=== PATIENT | female | born 1990 | race Caucasian/White ===

== ENCOUNTER 2020-06-30 10:14 | Inpatient (IN) | payer BC ==
[2020-06-30] MEDS ORDERED: Lidocaine 1% 50 ML MDV INJECT PRN (11:52)
[2020-06-30] MEDS ORDERED: Misoprostol 200 MCG Tab PO PRN (11:52)
[2020-06-30] MEDS ORDERED: Tranexamic Acid 1,000 MG in Sodium Chloride 0.9% 100 ML IV PRN (11:52)
[2020-06-30] MEDS ORDERED: Sodium Chloride 0.9% 10 ML SDV IV PRN (11:52)
[2020-06-30] MEDS ORDERED: Water For Irrigation,Sterile 1,000 ML Container IRR PRN (11:52)
[2020-06-30] MEDS ORDERED: Sodium Chloride 0.9% 2.5 ML Syringe FLUSH PRN (11:52)
[2020-06-30] MEDS ORDERED: Sodium Chloride 0.9% 10 ML Syringe FLUSH PRN (11:52)
[2020-06-30] MEDS ORDERED: Carboprost Tromethamine 250 MCG/1 ML Amp IM PRN (11:52)
[2020-06-30] MEDS ORDERED: Methylergonovine 0.2 MG/1 ML Amp IM PRN (11:52)
[2020-06-30] MEDS ORDERED: Ondansetron 4 MG/2 ML SDV IVPUSH PRN (11:52)
[2020-06-30] MEDS ORDERED: Oxytocin/0.9 % Sodium Chloride 30 UNIT/500 ML BAG IV SCH ×4 (12:00→15:15)
[2020-06-30] MEDS ORDERED: Terbutaline 1 MG/ML SDV SUBCUT PRN ×3 (15:09→15:14)
[2020-06-30] MEDS ORDERED: Misoprostol 25 MCG (1/4 of 100 MCG) Tab VAG PRN ×4 (15:09→15:10)
[2020-06-30] MEDS: Lactated Ringers 1,000 ML IV SCH (15:39)
--- NOTE | 2020-06-30 17:11 | PCM.LDHP ---
L&D History of Present Illness - General Date of Service: 06/30/20 Admit Problem/Dx: Patient Status Order with Admit Dx/Problem 06/30/20 11:52 Patient Status [ADT] Routine Admission Diagnosis/Problem Admission Diagnosis/Problem Source of Information: Patient History Limitations: Reports: No Limitations - History of Present Illness Introduction:: 29yo at 38w5d presented with SROM at 4:30am and contractions shortly after. Denies VB. Reports good FM. care remarkable for history of genital herpes, no breakouts this and patient has been on PPX valtrex. Also of note, patient had a demise at 6mo [place]. care otherwise unremarkable. AB+, abs screen neg, RI, HepBsAg neg, RPR neg, HIV neg, GC/Chlam neg, GBS neg. Nurse reports patient was grossly ruptured, and did not see any signs of herpes outbreak - Related Data Allergies/Adverse Reactions: Allergies Allergy/AdvReac Type Severity Reaction Status Date / Time Penicillins Allergy Unknown Rash Verified 06/30/20 12:50 tramadol Allergy Nausea and Verified 06/30/20 12:51 Vomiting Home Medications: Home Meds Pnv No.95/Ferrous Fum/Folic AC [ Tablet] 1 tab PO DAILY 06/30/20 [History] valACYclovir HCl [Valtrex] 500 tab PO BID 06/30/20 [History] H&P Review of Systems - Review of Systems: Review Of Systems: See Below General: Reports: No Symptoms HEENT: Reports: No Symptoms Pulmonary: Reports: No Symptoms Cardiovascular: Reports: No Symptoms Gastrointestinal: Reports: No Symptoms Genitourinary: Reports: No Symptoms Musculoskeletal: Reports: No Symptoms Skin: Reports: No Symptoms Psychiatric: Reports: No Symptoms Neurological: Reports: No Symptoms Hematologic/Lymphatic: Reports: No Symptoms Immunologic: Reports: No Symptoms L&D Exam - Exam Exam: See Below - Vital Signs Weight: 112.945 kg - OB Specific Contraction Intensity: Mild to Moderate Movement: Active Heart Rate (FHR) Variability: Moderate (6-25 bmp) Presentation: Vertex Estimated Weight: 7lbs - Roman Score Roman Score Cervix Position: Midposition Roman Score Consistency: Soft Roman Score Effacement: >80% Roman Score Dilation: 1-2 cm Roman Score 's Station: -2 Roman Score Total: 8 - Exam General: Alert, Oriented Lungs: Normal Respiratory Effort Cardiovascular: Regular Rate GI/Abdominal Exam: Non-Tender Extremities: Normal Inspection Psychiatric: Alert, Normal Affect, Normal Mood - Patient Data Lab Results Last 24 hrs: Laboratory Results - last 24 hr 06/30/20 06/30/20 06/30/20 Range/Units 09:40 11:25 11:35 WBC 12.10 H (4.0-11.0) K/uL RBC 4.10 L (4.30-5.90) M/uL Hgb 12.9 (12.0-16.0) g/dL Hct 37.9 (36.0-46.0) % MCV 92.4 (80.0-98.0) fL MCH 31.5 (27.0-32.0) pg MCHC 34.0 (31.0-37.0) g/dL RDW Std Deviation 43.1 (28.0-62.0) fl RDW Coeff of Eliane 13 (11.0-15.0) % Plt Count 279 (150-400) K/uL MPV 10.80 (7.40-12.00) fL Nucleated RBC % 0.0 /100WBC Nucleated RBCs # 0 K/uL Membrane Rupture POSITIVE SARS-CoV-2 RNA (ESMER) NEGATIVE (NEGATIVE) Blood Type Antibody Screen 06/30/20 Range/Units 11:35 WBC (4.0-11.0) K/uL RBC (4.30-5.90) M/uL Hgb (12.0-16.0) g/dL Hct (36.0-46.0) % MCV (80.0-98.0) fL MCH (27.0-32.0) pg MCHC (31.0-37.0) g/dL RDW Std Deviation (28.0-62.0) fl RDW Coeff of Eliane (11.0-15.0) % Plt Count (150-400) K/uL MPV (7.40-12.00) fL Nucleated RBC % /100WBC Nucleated RBCs # K/uL Membrane Rupture SARS-CoV-2 RNA (ESMER) (NEGATIVE) Blood Type AB POSITIVE Antibody Screen NEGATIVE Result Diagrams: 06/30/20 11:35 - Problem List (1) Term SNOMED Code(s): 84807797 ICD Code: Z34.90 - ENCNTR FOR SUPRVSN OF NORMAL , UNSP, UNSP TRIMESTER Status: Acute Priority: High Current Visit: Yes (2) Active labor at term SNOMED Code(s): 68203925 ICD Code: [id number] - Status: Acute Priority: High Current Visit: Yes Problem List Initiated/Reviewed/Updated: Yes Orders Last 24hrs: Active Orders 24 hr Category Date Time Status Patient Status [ADT] Routine ADT 06/30/20 11:52 Active Bedrest Bathroom Privileges [RC] ASDIRECTED Care 06/30/20 15:09 Active Bedrest Bathroom Privileges [RC] ASDIRECTED Care 06/30/20 15:11 Active Bedrest Bathroom Privileges [RC] ASDIRECTED Care 06/30/20 15:14 Active Communication Order [RC] ASDIRECTED Care 06/30/20 15:09 Active Communication Order [RC] ASDIRECTED Care 06/30/20 15:09 Active Communication Order [RC] ASDIRECTED Care 06/30/20 15:09 Active Communication Order [RC] ASDIRECTED Care 06/30/20 15:11 Active Communication Order [RC] ASDIRECTED Care 06/30/20 15:11 Active Communication Order [RC] ASDIRECTED Care 06/30/20 15:14 Active Communication Order [RC] ASDIRECTED Care 06/30/20 15:14 Active Heart Tones [RC] CONTINUOUS Care 06/30/20 11:52 Active Non Stress Test [RC] PER UNIT ROUTINE Care 06/30/20 11:52 Active May Shower [RC] ASDIRECTED Care 06/30/20 11:52 Active Notify Provider [RC] PRN Care 06/30/20 11:52 Active Notify Provider [RC] PRN Care 06/30/20 15:09 Active Notify Provider [RC] PRN Care 06/30/20 15:09 Active Notify Provider [RC] PRN Care 06/30/20 15:11 Active Notify Provider [RC] PRN Care 06/30/20 15:14 Active Notify Provider [RC] STAT Care 06/30/20 15:09 Active Notify Provider [RC] STAT Care 06/30/20 15:14 Active Oxygen Therapy [RC] ASDIRECTED Care 06/30/20 15:09 Active Oxygen Therapy [RC] ASDIRECTED Care 06/30/20 15:11 Active Oxygen Therapy [RC] ASDIRECTED Care 06/30/20 15:14 Active Up ad Elena [RC] ASDIRECTED Care 06/30/20 11:52 Active Vaginal Exam [RC] PRN Care 06/30/20 11:52 Active Vaginal Exam [RC] PRN Care 06/30/20 15:09 Active Vaginal Exam [RC] PRN Care 06/30/20 15:11 Active Vaginal Exam [RC] PRN Care 06/30/20 15:14 Active Vital Signs [RC] PER UNIT ROUTINE Care 06/30/20 11:52 Active Vital Signs [RC] PER UNIT ROUTINE Care 06/30/20 15:09 Active Vital Signs [RC] PER UNIT ROUTINE Care 06/30/20 15:11 Active Vital Signs [RC] PER UNIT ROUTINE Care 06/30/20 15:14 Active RPR (SYPHILIS SERO) W/ RFLX [REF] Routine Lab 06/30/20 11:35 Received Carboprost Tromethamine [Hemabate DS] Med 06/30/20 11:52 Active 250 mcg IM ASDIRECTED PRN Lactated Ringers [Ringers, Lactated] 1,000 ml Med 06/30/20 12:00 Active IV ASDIRECTED Lidocaine 1% [Xylocaine 1%] Med 06/30/20 11:52 Active 50 ml INJECT ONETIME PRN Methylergonovine [Methergine] Med 06/30/20 11:52 Active 0.2 mg IM ASDIRECTED PRN Nalbuphine [Nubain] Med 06/30/20 11:52 Active 10 mg IVPUSH Q1H PRN Ondansetron [Zofran] Med 06/30/20 11:52 Active 4 mg IVPUSH Q4H PRN Oxytocin/0.9 % Sodium Chloride [Oxytocin 30 Unit/500 ML Med 06/30/20 12:00 Active -NS] 30 unit in 500 ml IV TITRATE Oxytocin/0.9 % Sodium Chloride [Oxytocin 30 Unit/500 ML Med 06/30/20 15:15 Active -NS] 30 unit in 500 ml IV TITRATE Sodium Chloride 0.9% [Normal Saline] Med 06/30/20 11:52 Active 10 ml IV ASDIRECTED PRN Sodium Chloride 0.9% [Saline Flush] Med 06/30/20 11:52 Active 10 ml FLUSH ASDIRECTED PRN Sodium Chloride 0.9% [Saline Flush] Med 06/30/20 11:52 Active 2.5 ml FLUSH ASDIRECTED PRN Terbutaline [Brethine] Med 06/30/20 15:09 Active 0.25 mg SUBCUT ASDIRECTED PRN Tranexamic Acid [Cyklokapron] 1,000 mg Med 06/30/20 11:52 Active Sodium Chloride 0.9% [Normal Saline] 100 ml IV ONETIME Water For Irrigation,Sterile [Sterile Water for Med 06/30/20 11:52 Active Irrigation] 1,000 ml IRR ASDIRECTED PRN miSOPROStoL [Cytotec] Med 06/30/20 11:52 Active 200 mcg PO ONETIME PRN Scalp Electrode [WOMSER] Per Unit Routine Oth 06/30/20 11:52 Ordered Medication Administration Instruction [OM.PC] Q3H Oth 06/30/20 15:15 Ordered Peripheral IV Insertion Adult [OM.PC] Routine Oth 06/30/20 11:52 Ordered Resuscitation Status Routine Resus Stat 06/30/20 11:52 Ordered Medication Orders Carboprost Tromethamine (Carboprost Tromethamine 250 Mcg/1 Ml Amp) 250 mcg IM ASDIRECTED PRN PRN Reason: Post Hemorrhage Oxytocin/Sodium Chloride (Oxytocin 30 Unit/500 Ml-Ns) 30 unit in 500 mls @ 999 mls/hr IV TITRATE STANTON Tranexamic Acid 1,000 mg/ (Sodium Chloride) 110 mls @ 660 mls/hr IV ONETIME PRN PRN Reason: Bleeding Lactated Ringer's (Ringers, Lactated) 1,000 mls @ 150 mls/hr IV ASDIRECTED STANTON Last Admin: 06/30/20 15:39 Dose: 150 mls/hr Documented by: TAMMY Oxytocin/Sodium Chloride (Oxytocin 30 Unit/500 Ml-Ns) 30 unit in 500 mls @ 2 mls/hr IV TITRATE STANTON; Protocol Last Titration: 06/30/20 16:49 Dose: 6 munits/min, 6 mls/hr Documented by: Titration: 06/30/20 16:20 Dose: 4 munits/min, 4 mls/hr Documented by: Admin: 04/09/21 15:40 Dose: 2 munits/min, 2 mls/hr Documented by: TAMMY Lidocaine HCl (Lidocaine 1% 50 Ml Mdv) 50 ml INJECT ONETIME PRN PRN Reason: Laceration repair Methylergonovine Maleate (Methylergonovine 0.2 Mg/1 Ml Amp) 0.2 mg IM DIRECTED PRN PRN Reason: Post Hemorrhage Misoprostol (Misoprostol 200 Mcg Tab) 200 mcg PO ONETIME PRN PRN Reason: Post Hemorrhage Nalbuphine HCl (Nalbuphine 10 Mg/1 Ml Vial) 10 mg IVPUSH Q1H PRN PRN Reason: Pain (severe 7-10) Ondansetron HCl (Ondansetron 4 Mg/2 Ml Sdv) 4 mg IVPUSH Q4H PRN PRN Reason: Nausea/Vomiting Sodium Chloride (Sodium Chloride 0.9% 10 Ml Syringe) 10 ml FLUSH ASDIRECTED PRN PRN Reason: Keep Vein Open Sodium Chloride (Sodium Chloride 0.9% 2.5 Ml Syringe) 2.5 ml FLUSH ASDIRECTED PRN PRN Reason: Keep Vein Open Sodium Chloride (Sodium Chloride 0.9% 10 Ml Sdv) 10 ml IV ASDIRECTED PRN PRN Reason: IV Use Sterile Water (Water For Irrigation,Sterile 1,000 Ml Container) 1,000 ml IRR ASDIRECTED PRN PRN Reason: delivery Terbutaline Sulfate (Terbutaline 1 Mg/Ml Sdv) 0.25 mg SUBCUT ASDIRECTED PRN PRN Reason: Tacysystole Assessment/Plan Comment:: 29 yo at 38w5d present with SROM in labor. H/o genital herpes, no recent outbreaks. Patient has been on PPx valtrex. Patient does not have an outbreak currently, understand the risk to baby with vaginal and wants to proceed. Will admit and expectant management. Epidural PRN
[2020-06-30] MEDS: Nalbuphine 10 MG/1 ML Vial IVPUSH PRN ×2 (18:27→23:00)
[2020-06-30] MEDS: Promethazine 25 MG Tab PO PRN ×2 (18:28→23:04)
[2020-06-30] MEDS ORDERED: valACYclovir 500 MG Tab PO ONE (21:27)
[2020-07-01] MEDS: Lactated Ringers 1,000 ML IV SCH ×3 (00:13→07:33)
[2020-07-01] MEDS: Nalbuphine 10 MG/1 ML Vial IVPUSH PRN (00:31)
[2020-07-01] MEDS ORDERED: Ropivacaine HCl/PF 100 ML ONE ×2 (01:43→08:18)
[2020-07-01] MEDS ORDERED: fentaNYL 100 MCG/2 ML SDV ONE ×5 (01:43→08:18)
--- NOTE | 2020-07-01 02:16 | PCM.PREANE ---
Preanesthetic Assessment - Anesthesia/Transfusion/Family Hx Anesthesia History: Prior Anesthesia Without Reaction Family History of Anesthesia Reaction: No Transfusion History: No Prior Transfusion(s) - Physical Assessment NPO Status Date: 06/30/20 NPO Status Time: 20:00 Height: 1.52 m Weight: 112.945 kg ASA Class: 2 - Lab Values: Laboratory Last Values WBC 12.10 K/uL (4.0-11.0) H 06/30/20 11:35 RBC 4.10 M/uL (4.30-5.90) L 06/30/20 11:35 Hgb 12.9 g/dL (12.0-16.0) 06/30/20 11:35 Hct 37.9 % (36.0-46.0) 06/30/20 11:35 MCV 92.4 fL (80.0-98.0) 06/30/20 11:35 MCH 31.5 pg (27.0-32.0) 06/30/20 11:35 MCHC 34.0 g/dL (31.0-37.0) 06/30/20 11:35 RDW Std Deviation 43.1 fl (28.0-62.0) 06/30/20 11:35 RDW Coeff of Eliane 13 % (11.0-15.0) 06/30/20 11:35 Plt Count 279 K/uL (150-400) 06/30/20 11:35 MPV 10.80 fL (7.40-12.00) 06/30/20 11:35 Nucleated RBC % 0.0 /100WBC 06/30/20 11:35 Nucleated RBCs # 0 K/uL 06/30/20 11:35 Membrane Rupture POSITIVE 06/30/20 09:40 SARS-CoV-2 RNA (ESMER) NEGATIVE (NEGATIVE) 06/30/20 11:25 Blood Type AB POSITIVE 06/30/20 11:35 Antibody Screen NEGATIVE 06/30/20 11:35 - Allergies Allergies/Adverse Reactions: Allergies Allergy/AdvReac Type Severity Reaction Status Date / Time Penicillins Allergy Unknown Rash Verified 06/30/20 12:50 tramadol Allergy Nausea and Verified 06/30/20 12:51 Vomiting - Acknowledgements Anesthesia Type Planned: Epidural Pt an Appropriate Candidate for the Planned Anesthesia: Yes Alternatives and Risks of Anesthesia Discussed w Pt/Guardian: Yes Pt/Guardian Understands and Agrees with Anesthesia Plan: Yes PreAnesthesia Questionnaire - Past Health History Medical/Surgical History: Denies Medical/Surgical History HEENT History: Reports: None Other HEENT History: [place] teeth removed, Tonsillectomy HOME OFFICE REPRESENTATIVE History: Reports: , Other (See Below) Other OB/BYN History: Demise 5 months 2015 [facility] Oncologic (Cancer) History: Reports: Lymphoma Other Oncologic History: 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 Cyst on wirst removed - Infectious Disease History Infectious Disease History: Reports: None - Past Surgical History HEENT Surgical History: Reports: Tonsillectomy - SUBSTANCE USE Tobacco Use Status *Q: Never Tobacco User Tobacco Use Within Last Twelve Months: No Second Hand Smoke Exposure: No Recreational Drug Use History: No - HOME MEDS Home Medications: Home Meds Pnv No.95/Ferrous Fum/Folic AC [ Tablet] 1 tab PO DAILY 06/30/20 [History] valACYclovir HCl [Valtrex] 500 tab PO BID 06/30/20 [History] - CURRENT (IN HOUSE) MEDS Current Meds: Current Medications Carboprost Tromethamine (Carboprost Tromethamine 250 Mcg/1 Ml Amp) 250 mcg IM ASDIRECTED PRN PRN Reason: Post Hemorrhage Oxytocin/Sodium Chloride (Oxytocin 30 Unit/500 Ml-Ns) 30 unit in 500 mls @ 999 mls/hr IV TITRATE [place]ON Tranexamic Acid 1,000 mg/ (Sodium Chloride) 110 mls @ 660 mls/hr IV ONETIME PRN PRN Reason: Bleeding Lactated Ringer's (Ringers, Lactated) 1,000 mls @ 150 mls/hr IV ASDIRECTED STANTON Last Infusion: 07/01/20 01:27 Dose: 999 mls/hr Documented by: Oxytocin/Sodium Chloride (Oxytocin 30 Unit/500 Ml-Ns) 30 unit in 500 mls @ 2 mls/hr IV TITRATE STANTON; Protocol Last Titration: 06/30/20 22:11 Dose: 4 munits/min, 4 mls/hr Documented by: Lidocaine HCl (Lidocaine 1% 50 Ml Mdv) 50 ml INJECT ONETIME PRN PRN Reason: Laceration repair Methylergonovine Maleate (Methylergonovine 0.2 Mg/1 Ml Amp) 0.2 mg IM DIRECTED PRN PRN Reason: Post Hemorrhage Misoprostol (Misoprostol 200 Mcg Tab) 200 mcg PO ONETIME PRN PRN Reason: Post Hemorrhage Ondansetron HCl (Ondansetron 4 Mg/2 Ml Sdv) 4 mg IVPUSH Q4H PRN PRN Reason: Nausea/Vomiting Promethazine HCl (Promethazine 25 Mg Tab) 25 mg PO Q4H PRN PRN Reason: Nausea/Vomiting Last Admin: 06/30/20 23:04 Dose: 25 mg Documented by: Sodium Chloride (Sodium Chloride 0.9% 10 Ml Syringe) 10 ml FLUSH ASDIRECTED PRN PRN Reason: Keep Vein Open Sodium Chloride (Sodium Chloride 0.9% 2.5 Ml Syringe) 2.5 ml FLUSH ASDIRECTED PRN PRN Reason: Keep Vein Open Sodium Chloride (Sodium Chloride 0.9% 10 Ml Sdv) 10 ml IV ASDIRECTED PRN PRN Reason: IV Use Sterile Water (Water For Irrigation,Sterile 1,000 Ml Container) 1,000 ml IRR ASDIRECTED PRN PRN Reason: delivery Terbutaline Sulfate (Terbutaline 1 Mg/Ml Sdv) 0.25 mg SUBCUT ASDIRECTED PRN PRN Reason: Tacysystole Discontinued Medications Fentanyl (Fentanyl 100 Mcg/2 Ml Sdv) Confirm Administered Dose 100 mcg .ROUTE .STK-MED ONE Stop: 07/01/20 01:44 Ropivacaine (Naropin 0.2%) Confirm Administered Dose 100 mls @ as directed .ROUTE .STK-MED ONE Stop: 07/01/20 01:44 Misoprostol (Misoprostol 25 Mcg (1/4 Of 100 Mcg) Tab) 25 mcg VAG ONETIME PRN PRN Reason: Cervical Ripening Misoprostol (Misoprostol 25 Mcg (1/4 Of 100 Mcg) Tab) 25 mcg VAG Q4H PRN PRN Reason: Cervical Ripening Misoprostol (Misoprostol 25 Mcg (1/4 Of 100 Mcg) Tab) 25 mcg VAG ONETIME PRN PRN Reason: Cervical Ripening Misoprostol (Misoprostol 25 Mcg (1/4 Of 100 Mcg) Tab) 25 mcg VAG Q4H PRN PRN Reason: Cervical Ripening Nalbuphine HCl (Nalbuphine 10 Mg/1 Ml Vial) 10 mg IVPUSH Q1H PRN PRN Reason: Pain (severe 7-10) Last Admin: 07/01/20 00:31 Dose: 10 mg Documented by: Valacyclovir HCl (Valacyclovir 500 Mg Tab) 500 mg PO ONETIME ONE Stop: 06/30/20 21:28 Last Admin: 06/30/20 22:12 Dose: 500 mg Documented by:
--- NOTE | 2020-07-01 02:20 | PCM.PRNOTE ---
- Free Text/Narrative Note: Anes Note Patient requests epidural for L&D. Sitting position. Level L3-L4 midline approach. Sterile technique. Chloraprep scrub to lumbar area. Sterile fenestrated drape applied. Epidural space easily achieved using KESHA technique. KESHA at 5 cm. Cath threaded 7 cm with ease. Cath secured at skin using sterile clear adhesive dressing. 0205 Test 3 cc 1.5% tj with epi negative. 0208 Load 10 cc 0.2% ropivicaine with 1 mcg cc fentanyl i slow divided doses. 0212 Pump started with 90 cc same solution. Rate is 8 cc hr with 6 cc q 20 min prn bolus. Cirilo well. Time with patient [id number] Justice Sanchez G[employer]
[2020-07-01] MEDS ORDERED: Lidocaine 2% with EPINEPHrine 1:200,000 20 ML SDV ONE (04:26)
--- NOTE | 2020-07-01 07:36 | PCM.PRNOTE ---
- Free Text/Narrative Note: Anes Note Patient reports incomplete analgesia in left inguinal area. The epidural catheter was pulled back 1 cm. A top up dose of 100 mcg fentanyl plus 6 cc 2% lido with epi was administered. Patient reports improved analgesia. Time with patient [id number] Justice Sanchez CRNA
--- NOTE | 2020-07-01 07:37 | PCM.PRNOTE ---
- Free Text/Narrative Note: Anes Note Patient reports incomplete analgesia in left inguinal area. A top up dose of 100 mcg fentanyl plus 6 cc 2% lido with epi was administered. Patient reports improved analgesia. Time with patient [id number] Justice Sanchez CRNA
--- NOTE | 2020-07-01 08:37 | PCM.PRNOTE ---
- Free Text/Narrative Note: Anes Note Epidural Infusion Bag completed. A new epidural bag was placed. Solution is 90 cc 0.2% ropivicaine with 1 mcg cc fentanyl was started at 8 cc hr with 6 cc q 20 min bolus. Patient reports incomplete analgesia in left inguinal area. A top up dose of 5 cc 2% lidocaine with epi plus 100 mcg fentanyl was injected. Tolerated well. Time with patient [id number] Justice Sanchez CRNA
--- NOTE | 2020-07-01 10:30 | PCM.DEL ---
L & D Note - General Info Date of Service: 07/01/20 Mother's Due Date: 07/09/20 - Delivery Note Labor: Spontaneous Delivery Outcome: Livebirth Infant Delivery Method: Spontaneous Vaginal Delivery-Single Presentation: Vertex Nuchal Cord: Present, Reduced Anesthesia Type: Epidural Anesthetic: Lidocaine (Xylocaine) 1% Plain Local Anesthetic Volume: Other Amniotic Fluid Description: Clear Episiotomy Type: None Laceration: 2nd Degree Suture size: 3-0 Placenta: Intact, Spontaneous Cord: 3 Vessels Estimated Blood Loss: 250 Resuscitation Needed: No : Warmed Score 1 min: 8 Score 5 min: 9 Delivery Comments (Free Text/Narrative):: 29yo G2 now P1011 @ 38w6d GA after uncomplicated after prelabor rupture of membrane 19hrs earlier. course was remarkable for h/o genital herpes. No recent outbreaks. Patient was on valtrex. Labor course: Patient was augmented with pitocin and epidural was placed. She then progressed to full dilation with intermittent variable decels. of a live female, 7lb 3oz and Apgars 8/9. Delivered LAUREN, nuchal cord present and was reduced, No meconium. Vertex and body delivered without difficulty. Cord clamped and cut. Nose and mouth bulb suctioned; Baby placed on Mom's abdomen. Placenta delivered spontaneously, intact. Fundus firm, minimal bleeding. Placenta appears intact with 3 vessel cord. Perineum and vagina inspected: 2nd degree perineal laceration repaired with 3-0 suture suture in the usual fashion. EBL 250cc. Hemostasis. Patient tolerated procedure well, recovering in LDR. by her side. - General Info Date of Service: 07/01/20 Admission Dx/Problem (Free Text): Patient Status Order with Admit Dx/Problem 06/30/20 11:52 Patient Status [ADT] Routine Admission Diagnosis/Problem Admission Diagnosis/Problem Subjective Update: Uncomplicated . Mom and baby are doing well Functional Status: Reports: Pain Controlled - Review of Systems General: Reports: No Symptoms - Patient Data Weight - Most Recent: 112.945 kg I&O - Last 24 Hours: Intake & Output 06/30/20 07/01/20 07/01/20 22:59 06:59 14:59 Intake Total 1999 975 Balance 1999 975 Lab Results Last 24 Hours: Laboratory Results - last 24 hr 06/30/20 06/30/20 06/30/20 Range/Units 09:40 11:25 11:35 WBC 12.10 H (4.0-11.0) K/uL RBC 4.10 L (4.30-5.90) M/uL Hgb 12.9 (12.0-16.0) g/dL Hct 37.9 (36.0-46.0) % MCV 92.4 (80.0-98.0) fL MCH 31.5 (27.0-32.0) pg MCHC 34.0 (31.0-37.0) g/dL RDW Std Deviation 43.1 (28.0-62.0) fl RDW Coeff of Eliane 13 (11.0-15.0) % Plt Count 279 (150-400) K/uL MPV 10.80 (7.40-12.00) fL Nucleated RBC % 0.0 /100WBC Nucleated RBCs # 0 K/uL Membrane Rupture POSITIVE SARS-CoV-2 RNA (ESMER) NEGATIVE (NEGATIVE) Blood Type Antibody Screen 06/30/20 Range/Units 11:35 WBC (4.0-11.0) K/uL RBC (4.30-5.90) M/uL Hgb (12.0-16.0) g/dL Hct (36.0-46.0) % MCV (80.0-98.0) fL MCH (27.0-32.0) pg MCHC (31.0-37.0) g/dL RDW Std Deviation (28.0-62.0) fl RDW Coeff of Eliane (11.0-15.0) % Plt Count (150-400) K/uL MPV (7.40-12.00) fL Nucleated RBC % /100WBC Nucleated RBCs # K/uL Membrane Rupture SARS-CoV-2 RNA (ESMER) (NEGATIVE) Blood Type AB POSITIVE Antibody Screen NEGATIVE Med Orders - Current: Current Medications Carboprost Tromethamine (Carboprost Tromethamine 250 Mcg/1 Ml Amp) 250 mcg IM ASDIRECTED PRN PRN Reason: Post Hemorrhage Oxytocin/Sodium Chloride (Oxytocin 30 Unit/500 Ml-Ns) 30 unit in 500 mls @ 999 mls/hr IV TITRATE STANTON Tranexamic Acid 1,000 mg/ (Sodium Chloride) 110 mls @ 660 mls/hr IV ONETIME PRN PRN Reason: Bleeding Lactated Ringer's (Ringers, Lactated) 1,000 mls @ 150 mls/hr IV ASDIRECTED STANTON Last Admin: 07/01/20 07:33 Dose: 150 mls/hr Documented by: Oxytocin/Sodium Chloride (Oxytocin 30 Unit/500 Ml-Ns) 30 unit in 500 mls @ 2 mls/hr IV TITRATE STANTON; Protocol Last Titration: 06/30/20 22:11 Dose: 4 munits/min, 4 mls/hr Documented by: Lidocaine HCl (Lidocaine 1% 50 Ml Mdv) 50 ml INJECT ONETIME PRN PRN Reason: Laceration repair Methylergonovine Maleate (Methylergonovine 0.2 Mg/1 Ml Amp) 0.2 mg IM ASDIRECTED PRN PRN Reason: Post Hemorrhage Misoprostol (Misoprostol 200 Mcg Tab) 200 mcg PO ONETIME PRN PRN Reason: Post Hemorrhage Ondansetron HCl (Ondansetron 4 Mg/2 Ml Sdv) 4 mg IVPUSH Q4H PRN PRN Reason: Nausea/Vomiting Promethazine HCl (Promethazine 25 Mg Tab) 25 mg PO Q4H PRN PRN Reason: Nausea/Vomiting Last Admin: 06/30/20 23:04 Dose: 25 mg Documented by: Sodium Chloride (Sodium Chloride 0.9% 10 Ml Syringe) 10 ml FLUSH ASDIRECTED PRN PRN Reason: Keep Vein Open Sodium Chloride (Sodium Chloride 0.9% 2.5 Ml Syringe) 2.5 ml FLUSH ASDIRECTED PRN PRN Reason: Keep Vein Open Sodium Chloride (Sodium Chloride 0.9% 10 Ml Sdv) 10 ml IV ASDIRECTED PRN PRN Reason: IV Use Sterile Water (Water For Irrigation,Sterile 1,000 Ml Container) 1,000 ml IRR ASDIRECTED PRN PRN Reason: delivery Terbutaline Sulfate (Terbutaline 1 Mg/Ml Sdv) 0.25 mg SUBCUT ASDIRECTED PRN PRN Reason: Tacysystole Discontinued Medications Fentanyl (Fentanyl 100 Mcg/2 Ml Sdv) Confirm Administered Dose 100 mcg .ROUTE .STK-MED ONE Stop: 07/01/20 01:44 Fentanyl (Fentanyl 100 Mcg/2 Ml Sdv) Confirm Administered Dose 100 mcg .ROUTE .STK-MED ONE Stop: 07/01/20 04:27 Fentanyl (Fentanyl 100 Mcg/2 Ml Sdv) Confirm Administered Dose 100 mcg .ROUTE .STK-MED ONE Stop: 07/01/20 06:42 Fentanyl (Fentanyl 100 Mcg/2 Ml Sdv) Confirm Administered Dose 100 mcg .ROUTE .STK-MED ONE Stop: 07/01/20 08:19 Fentanyl (Fentanyl 100 Mcg/2 Ml Sdv) Confirm Administered Dose 100 mcg .ROUTE .STK-MED ONE Stop: 07/01/20 08:19 Ropivacaine (Naropin 0.2%) Confirm Administered Dose 100 mls @ as directed .ROUTE .STK-MED ONE Stop: 07/01/20 01:44 Ropivacaine (Naropin 0.2%) Confirm Administered Dose 100 mls @ as directed .ROUTE .STK-MED ONE Stop: 07/01/20 08:19 Lidocaine/Epinephrine (Lidocaine 2% With Epinephrine 1:200,000 20 Ml Sdv) Confirm Administered Dose 20 ml .ROUTE .STK-MED ONE Stop: 07/01/20 04:27 Misoprostol (Misoprostol 25 Mcg (1/4 Of 100 Mcg) Tab) 25 mcg VAG ONETIME PRN PRN Reason: Cervical Ripening Misoprostol (Misoprostol 25 Mcg (1/4 Of 100 Mcg) Tab) 25 mcg VAG Q4H PRN PRN Reason: Cervical Ripening Misoprostol (Misoprostol 25 Mcg (1/4 Of 100 Mcg) Tab) 25 mcg VAG ONETIME PRN PRN Reason: Cervical Ripening Misoprostol (Misoprostol 25 Mcg (1/4 Of 100 Mcg) Tab) 25 mcg VAG Q4H PRN PRN Reason: Cervical Ripening Nalbuphine HCl (Nalbuphine 10 Mg/1 Ml Vial) 10 mg IVPUSH Q1H PRN PRN Reason: Pain (severe 7-10) Last Admin: 07/01/20 00:31 Dose: 10 mg Documented by: Valacyclovir HCl (Valacyclovir 500 Mg Tab) 500 mg PO ONETIME ONE Stop: 06/30/20 21:28 Last Admin: 06/30/20 22:12 Dose: 500 mg Documented by: - Exam General: Alert, Oriented Lungs: Normal Respiratory Effort Cardiovascular: Regular Rate GI/Abdominal Exam: Soft Extremities: Normal Inspection Psy/Mental Status: Alert, Normal Affect, Normal Mood - Problem List & Annotations (1) Term SNOMED Code(s): 91563519 Code(s): Z34.90 - ENCNTR FOR SUPRVSN OF NORMAL , UNSP, UNSP TRIMESTER Status: Acute Priority: High Current Visit: Yes (2) Term delivered SNOMED Code(s): 59395929, 580252952 Code(s): O80 - ENCOUNTER FOR FULL-TERM UNCOMPLICATED DELIVERY Status: Acute Priority: High Current Visit: Yes - Problem List Review Problem List Initiated/Reviewed/Updated: Yes - My Orders Last 24 Hours: My Active Orders 06/30/20 11:35 RPR (SYPHILIS SERO) W/ RFLX [REF] Routine 06/30/20 11:52 Patient Status [ADT] Routine Heart Tones [RC] CONTINUOUS Non Stress Test [RC] PER UNIT ROUTINE May Shower [RC] ASDIRECTED Up ad Elena [RC] ASDIRECTED Vaginal Exam [RC] PRN Vital Signs [RC] PER UNIT ROUTINE Carboprost Tromethamine [Hemabate DS] 250 mcg IM ASDIRECTED PRN Lidocaine 1% [Xylocaine 1%] 50 ml INJECT ONETIME PRN Methylergonovine [Methergine] 0.2 mg IM ASDIRECTED PRN Ondansetron [Zofran] 4 mg IVPUSH Q4H PRN Sodium Chloride 0.9% [Normal Saline] 10 ml IV ASDIRECTED PRN Sodium Chloride 0.9% [Saline Flush] 10 ml FLUSH ASDIRECTED PRN Sodium Chloride 0.9% [Saline Flush] 2.5 ml FLUSH ASDIRECTED PRN Tranexamic Acid [Cyklokapron] 1,000 mg Sodium Chloride 0.9% [Normal Saline] 100 ml IV ONETIME Water For Irrigation,Sterile [Sterile Water for Irrigation] 1,000 ml IRR ASDIRECTED PRN miSOPROStoL [Cytotec] 200 mcg PO ONETIME PRN Scalp Electrode [WOMSER] Per Unit Routine Peripheral IV Insertion Adult [OM.PC] Routine Resuscitation Status Routine 06/30/20 12:00 Lactated Ringers [Ringers, Lactated] 1,000 ml IV ASDIRECTED Oxytocin/0.9 % Sodium Chloride [Oxytocin 30 Unit/500 ML-NS] 30 unit in 500 ml IV TITRATE 06/30/20 15:09 Notify Provider [RC] PRN Notify Provider [RC] STAT Terbutaline [Brethine] 0.25 mg SUBCUT ASDIRECTED PRN 06/30/20 15:14 Bedrest Bathroom Privileges [RC] ASDIRECTED Communication Order [RC] ASDIRECTED Oxygen Therapy [RC] ASDIRECTED 06/30/20 15:15 Oxytocin/0.9 % Sodium Chloride [Oxytocin 30 Unit/500 ML-NS] 30 unit in 500 ml IV TITRATE Medication Administration Instruction [OM.PC] Q3H 06/30/20 18:06 Promethazine [Phenergan] 25 mg PO Q4H PRN - Plan Plan:: 29 yo G2 now P1011 s/p uncomplicated at 38w6d after prelabor SROM 19hrs before delivery. H/o genital herpes, no recent outbreaks. Patient has been on PPx valtrex. Will admit to Routine care. Continue valtrex
[2020-07-01] MEDS ORDERED: Bisacodyl 10 MG Supp RECTAL PRN (10:51)
[2020-07-01] MEDS ORDERED: Witch Hazel Medicated Pads 40/Jar TOP PRN (10:51)
[2020-07-01] MEDS ORDERED: Acetaminophen 500 MG Tab PO PRN ×2 (10:51)
[2020-07-01] MEDS ORDERED: Benzocaine/Menthol 20%-0.5% Spray 78 GM Cannister TOP PRN (10:51)
[2020-07-01] MEDS ORDERED: Lanolin 100% Cream 7 GM Tube TOP PRN (10:51)
[2020-07-01] MEDS ORDERED: Ibuprofen 800 MG Tab PO PRN (10:51)
[2020-07-01] MEDS ORDERED: Ibuprofen 400 MG Tab PO PRN (10:51)
[2020-07-01] MEDS: Docusate Sodium 100 MG Cap PO PRN (12:14)
--- NOTE | 2020-07-02 07:03 | PCM48HPAN ---
Post Anesthesia Note - EVALUATION WITHIN 48HRS OF ANESTHETIC Vital Signs in Normal Range: Yes Patient Participated in Evaluation: Yes Respiratory Function Stable: Yes Airway Patent: Yes Cardiovascular Function Stable: Yes Hydration Status Stable: Yes Pain Control Satisfactory: Yes Nausea and Vomiting Control Satisfactory: Yes Mental Status Recovered: Yes Vital Signs: Last Vital Signs Temp 37.1 C 07/02/20 03:15 Pulse 92 07/02/20 03:15 Resp 18 07/02/20 03:15 BP 114/72 07/02/20 03:15 Pulse Ox 96 07/02/20 03:15
--- NOTE | 2020-07-02 16:41 | PCM.PNPP ---
- General Info Date of Service: 07/02/20 Admission Dx/Problem (Free Text): Patient Status Order with Admit Dx/Problem 06/30/20 11:52 Patient Status [ADT] Routine Admission Diagnosis/Problem Admission Diagnosis/Problem Subjective Update: Uncomplicated . Patient is doing well. Pain well controlled. Minimal VB. Ambulating without dizziness. Tolerating PO without nausea or vomiting. Baby failed CCHD screen and is going through further evaluations. Functional Status: Reports: Pain Controlled - Review of Systems General: Reports: No Symptoms Psychiatric: Reports: No Symptoms - General Info Date of Service: 07/02/20 - Patient Data Vital Signs - Most Recent: Last Vital Signs Temp 98.8 F 07/02/20 03:15 Pulse 92 07/02/20 03:15 Resp 18 07/02/20 03:15 BP 114/72 07/02/20 03:15 Pulse Ox 96 07/02/20 03:15 Weight - Most Recent: 112.945 kg Lab Results - Last 24 Hours: Laboratory Results - last 24 hr 07/02/20 Range/Units 06:30 Hgb 11.7 L (12.0-16.0) g/dL Hct 35.7 L (36.0-46.0) % Med Orders - Current: Current Medications Acetaminophen (Acetaminophen 500 Mg Tab) 500 mg PO Q4H PRN PRN Reason: Pain Acetaminophen (Acetaminophen 500 Mg Tab) 1,000 mg PO Q4H PRN PRN Reason: Pain Last Admin: 07/02/20 00:51 Dose: 1,000 mg Documented by: Benzocaine/Menthol (Benzocaine/Menthol 20%-0.5% Lynn 78 Gm Cannister) 78 gm TOP ASDIRECTED PRN PRN Reason: Perineal Comfort Measure Last Admin: 07/01/20 12:14 Dose: 1 applic Documented by: Bisacodyl (Bisacodyl 10 Mg Supp) 10 mg RECTAL ONETIME PRN PRN Reason: Constipation Carboprost Tromethamine (Carboprost Tromethamine 250 Mcg/1 Ml Amp) 250 mcg IM ASDIRECTED PRN PRN Reason: Post Hemorrhage Docusate Sodium (Docusate Sodium 100 Mg Cap) 100 mg PO BID PRN PRN Reason: Constipation Last Admin: 07/01/20 12:14 Dose: 100 mg Documented by: Emollient Ointment (Lanolin 100% Cream 7 Gm Tube) 0 gm TOP ASDIRECTED PRN PRN Reason: Sore Nipples Last Admin: 07/01/20 12:13 Dose: 1 applic Documented by: Oxytocin/Sodium Chloride (Oxytocin 30 Unit/500 Ml-Ns) 30 unit in 500 mls @ 999 mls/hr IV TITRATE STANTON Tranexamic Acid 1,000 mg/ (Sodium Chloride) 110 mls @ 660 mls/hr IV ONETIME PRN PRN Reason: Bleeding Lactated Ringer's (Ringers, Lactated) 1,000 mls @ 150 mls/hr IV ASDIRECTED STANTON Last Admin: 07/01/20 07:33 Dose: 150 mls/hr Documented by: Oxytocin/Sodium Chloride (Oxytocin 30 Unit/500 Ml-Ns) 30 unit in 500 mls @ 2 mls/hr IV TITRATE STANTON; Protocol Last Titration: 07/01/20 09:41 Dose: 500 munits/min, 500 mls/hr Documented by: Ibuprofen (Ibuprofen 400 Mg Tab) 400 mg PO Q4H PRN PRN Reason: Pain Ibuprofen (Ibuprofen 800 Mg Tab) 800 mg PO Q6H PRN PRN Reason: Pain Last Admin: 07/01/20 12:15 Dose: 800 mg Documented by: Lidocaine HCl (Lidocaine 1% 50 Ml Mdv) 50 ml INJECT ONETIME PRN PRN Reason: Laceration repair Last Admin: 07/01/20 09:46 Dose: 50 ml Documented by: Methylergonovine Maleate (Methylergonovine 0.2 Mg/1 Ml Amp) 0.2 mg IM ASDIRECTED PRN PRN Reason: Post Hemorrhage Misoprostol (Misoprostol 200 Mcg Tab) 200 mcg PO ONETIME PRN PRN Reason: Post Hemorrhage Ondansetron HCl (Ondansetron 4 Mg/2 Ml Sdv) 4 mg IVPUSH Q4H PRN PRN Reason: Nausea/Vomiting Promethazine HCl (Promethazine 25 Mg Tab) 25 mg PO Q4H PRN PRN Reason: Nausea/Vomiting Last Admin: 06/30/20 23:04 Dose: 25 mg Documented by: Sodium Chloride (Sodium Chloride 0.9% 10 Ml Syringe) 10 ml FLUSH ASDIRECTED PRN PRN Reason: Keep Vein Open Sodium Chloride (Sodium Chloride 0.9% 2.5 Ml Syringe) 2.5 ml FLUSH ASDIRECTED PRN PRN Reason: Keep Vein Open Sodium Chloride (Sodium Chloride 0.9% 10 Ml Sdv) 10 ml IV ASDIRECTED PRN PRN Reason: IV Use Sterile Water (Water For Irrigation,Sterile 1,000 Ml Container) 1,000 ml IRR ASDIRECTED PRN PRN Reason: delivery Terbutaline Sulfate (Terbutaline 1 Mg/Ml Sdv) 0.25 mg SUBCUT ASDIRECTED PRN PRN Reason: Tacysystole Witch Prvaeena (Witch Praveena Medicated Pads 40/Jar) 1 pad TOP ASDIRECTED PRN PRN Reason: comfort care Last Admin: 07/01/20 12:13 Dose: 1 applic Documented by: Discontinued Medications Fentanyl (Fentanyl 100 Mcg/2 Ml Sdv) Confirm Administered Dose 100 mcg .ROUTE .STK-MED ONE Stop: 07/01/20 01:44 Last Admin: 07/01/20 19:12 Dose: Not Given Documented by: Fentanyl (Fentanyl 100 Mcg/2 Ml Sdv) Confirm Administered Dose 100 mcg .ROUTE .STK-MED ONE Stop: 07/01/20 04:27 Last Admin: 07/01/20 19:12 Dose: Not Given Documented by: Fentanyl (Fentanyl 100 Mcg/2 Ml Sdv) Confirm Administered Dose 100 mcg .ROUTE .STK-MED ONE Stop: 07/01/20 06:42 Last Admin: 07/01/20 19:12 Dose: Not Given Documented by: Fentanyl (Fentanyl 100 Mcg/2 Ml Sdv) Confirm Administered Dose 100 mcg .ROUTE .STK-MED ONE Stop: 07/01/20 08:19 Last Admin: 07/01/20 19:14 Dose: Not Given Documented by: Fentanyl (Fentanyl 100 Mcg/2 Ml Sdv) Confirm Administered Dose 100 mcg .ROUTE .STK-MED ONE Stop: 07/01/20 08:19 Last Admin: 07/01/20 19:14 Dose: Not Given Documented by: Ropivacaine (Naropin 0.2%) Confirm Administered Dose 100 mls @ as directed .ROUTE .STK-MED ONE Stop: 07/01/20 01:44 Last Admin: 07/01/20 19:11 Dose: Not Given Documented by: Ropivacaine (Naropin 0.2%) Confirm Administered Dose 100 mls @ as directed .ROUTE .STK-MED ONE Stop: 07/01/20 08:19 Last Admin: 07/01/20 19:12 Dose: Not Given Documented by: Lidocaine/Epinephrine (Lidocaine 2% With Epinephrine 1:200,000 20 Ml Sdv) Confirm Administered Dose 20 ml .ROUTE .STK-MED ONE Stop: 07/01/20 04:27 Last Admin: 07/01/20 19:12 Dose: Not Given Documented by: Misoprostol (Misoprostol 25 Mcg (1/4 Of 100 Mcg) Tab) 25 mcg VAG ONETIME PRN PRN Reason: Cervical Ripening Misoprostol (Misoprostol 25 Mcg (1/4 Of 100 Mcg) Tab) 25 mcg VAG Q4H PRN PRN Reason: Cervical Ripening Misoprostol (Misoprostol 25 Mcg (1/4 Of 100 Mcg) Tab) 25 mcg VAG ONETIME PRN PRN Reason: Cervical Ripening Misoprostol (Misoprostol 25 Mcg (1/4 Of 100 Mcg) Tab) 25 mcg VAG Q4H PRN PRN Reason: Cervical Ripening Nalbuphine HCl (Nalbuphine 10 Mg/1 Ml Vial) 10 mg IVPUSH Q1H PRN PRN Reason: Pain (severe 7-10) Last Admin: 07/01/20 00:31 Dose: 10 mg Documented by: Valacyclovir HCl (Valacyclovir 500 Mg Tab) 500 mg PO ONETIME ONE Stop: 06/30/20 21:28 Last Admin: 06/30/20 22:12 Dose: 500 mg Documented by: - Infant Interaction Disposition, : [place] to Nursery Support Person: - Recovery Exam Fundal Tone: Firm Fundal Level: 1 Fingerbreadths Below Umbilicus Fundal Placement: Midline Lochia Amount: Scant Lochia Color: Rubra/Red Perineum Description: Other (see below) Other Perinuem Description: 2nd degree laceration with repair. Episiotomy/Laceration: Approximated Bladder Status: Voiding Urinary Elimination: Voided - Exam General: Alert, Oriented Lungs: Normal Respiratory Effort Cardiovascular: Regular Rate GI/Abdominal Exam: Soft Extremities: Normal Inspection Psy/Mental Status: Alert, Normal Affect, Normal Mood - Problem List & Annotations (1) Term delivered SNOMED Code(s): 17147652, 569983407 Code(s): O80 - ENCOUNTER FOR FULL-TERM UNCOMPLICATED DELIVERY Status: Acute Priority: High Current Visit: Yes - Problem List Review Problem List Initiated/Reviewed/Updated: Yes - Plan Plan:: 29 yo G2 now P1011 s/p uncomplicated at 38w6d after prelabor SROM 19hrs before delivery. H/o genital herpes, no recent outbreaks. Patient has been on PPx valtrex. course c/b abnormal CCHD screen on baby; going through further evaluation. Continue routine care. Continue valtrex
[2020-07-02] MEDS: Docusate Sodium 100 MG Cap PO PRN (21:02)
--- NOTE | 2020-07-03 09:45 | PCM.DCSUM1 ---
Discharge Summary - Hospital Course Free Text/Narrative:: Discharge home with baby. Follow up in the clinic in 6 weeks for routine visit; sooner, if needed. Diagnosis: Stroke: No Modified Nitin Scale: No Symptoms at All Modified Nitin Scale Score: 0 - Discharge Data Discharge Date: 07/03/20 Discharge Disposition: Home, Self-Care 01 Condition: Good - Referral to Home Health Primary Care Physician: Candis Ng MD - Discharge Diagnosis/Problem(s) (1) (spontaneous vaginal delivery) SNOMED Code(s): 351317488 ICD Code: O80 - ENCOUNTER FOR FULL-TERM UNCOMPLICATED DELIVERY Status: Acute Priority: High Current Visit: Yes - Patient Instructions Diet: Regular Diet as Tolerated, Drink 8-10+ Glasses/Day Activity: As Tolerated, No Strenuous Activities, Rest and Relax Today Driving: May Drive Today Showering/Bathing: May Shower Notify Provider of: Fever, Increased Pain, Swelling and Redness, Drainage, Nausea and/or Vomiting - Discharge Plan *PRESCRIPTION DRUG MONITORING PROGRAM REVIEWED*: Not Applicable *COPY OF PRESCRIPTION DRUG MONITORING REPORT IN PATIENT BRYS[place]: Not Applicable Prescriptions/Med Rec: Ibuprofen [Motrin] 800 mg PO Q6H PRN #90 tablet PRN Reason: Pain Home Medications: Home Meds Pnv No.95/Ferrous Fum/Folic AC [ Tablet] 1 tab PO DAILY 06/30/20 [History] valACYclovir HCl [Valtrex] 500 tab PO BID 06/30/20 [History] Ibuprofen [Motrin] 800 mg PO Q6H PRN #90 tablet 07/03/20 [Rx] Oxygen Therapy Mode: Room Air Referrals: Evie Mota CNM [Mid-] - 08/11/20 1:00 pm - Discharge Summary/Plan Comment DC Time >30 min.: Yes - General Info Date of Service: 07/03/20 Admission Dx/Problem (Free Text: Patient Status Order with Admit Dx/Problem 06/30/20 11:52 Patient Status [ADT] Routine Admission Diagnosis/Problem Admission Diagnosis/Problem Functional Status: Reports: Pain Controlled, Tolerating Diet, Ambulating, Urinating - Review of Systems General: Reports: No Symptoms HEENT: Reports: No Symptoms Pulmonary: Reports: No Symptoms Cardiovascular: Reports: No Symptoms Gastrointestinal: Reports: No Symptoms Genitourinary: Reports: No Symptoms Musculoskeletal: Reports: No Symptoms Skin: Reports: No Symptoms Neurological: Reports: No Symptoms Psychiatric: Reports: No Symptoms - Patient Data Vitals - Most Recent: Last Vital Signs Temp 98.2 F 07/03/20 05:54 Pulse 68 07/03/20 05:54 Resp 16 07/03/20 05:54 BP 132/83 07/03/20 05:54 Pulse Ox 97 07/03/20 05:54 Weight - Most Recent: 249 lb Med Orders - Current: Current Medications Acetaminophen (Acetaminophen 500 Mg Tab) 500 mg PO Q4H PRN PRN Reason: Pain Acetaminophen (Acetaminophen 500 Mg Tab) 1,000 mg PO Q4H PRN PRN Reason: Pain Last Admin: 07/02/20 00:51 Dose: 1,000 mg Documented by: Benzocaine/Menthol (Benzocaine/Menthol 20%-0.5% [place] 78 Gm Cannister) 78 gm TOP ASDIRECTED PRN PRN Reason: Perineal Comfort Measure Last Admin: 07/01/20 12:14 Dose: 1 applic Documented by: Bisacodyl (Bisacodyl 10 Mg Supp) 10 mg RECTAL ONETIME PRN PRN Reason: Constipation Carboprost Tromethamine (Carboprost Tromethamine 250 Mcg/1 Ml Amp) 250 mcg IM ASDIRECTED PRN PRN Reason: Post Hemorrhage Docusate Sodium (Docusate Sodium 100 Mg Cap) 100 mg PO BID PRN PRN Reason: Constipation Last Admin: 07/02/20 21:02 Dose: 100 mg Documented by: Emollient Ointment (Lanolin 100% Cream 7 Gm Tube) 0 gm TOP ASDIRECTED PRN PRN Reason: Sore Nipples Last Admin: 07/01/20 12:13 Dose: 1 applic Documented by: Oxytocin/Sodium Chloride (Oxytocin 30 Unit/500 Ml-Ns) 30 unit in 500 mls @ 999 mls/hr IV TITRATE [place] Tranexamic Acid 1,000 mg/ (Sodium Chloride) 110 mls @ 660 mls/hr IV ONETIME PRN PRN Reason: Bleeding Lactated Ringer's (Ringers, Lactated) 1,000 mls @ 150 mls/hr IV ASDIRECTED [place] Last Admin: 07/01/20 07:33 Dose: 150 mls/hr Documented by: Oxytocin/Sodium Chloride (Oxytocin 30 Unit/500 Ml-Ns) 30 unit in 500 mls @ 2 mls/hr IV TITRATE [place]; Protocol Last Titration: 07/01/20 09:41 Dose: 500 munits/min, 500 mls/hr Documented by: Ibuprofen (Ibuprofen 400 Mg Tab) 400 mg PO Q4H PRN PRN Reason: Pain Ibuprofen (Ibuprofen 800 Mg Tab) 800 mg PO Q6H PRN PRN Reason: Pain Last Admin: 07/01/20 12:15 Dose: 800 mg Documented by: Lidocaine HCl (Lidocaine 1% 50 Ml Mdv) 50 ml INJECT ONETIME PRN PRN Reason: Laceration repair Last Admin: 07/01/20 09:46 Dose: 50 ml Documented by: Methylergonovine Maleate (Methylergonovine 0.2 Mg/1 Ml Amp) 0.2 mg IM ASDIRECTED PRN PRN Reason: Post Hemorrhage Misoprostol (Misoprostol 200 Mcg Tab) 200 mcg PO ONETIME PRN PRN Reason: Post Hemorrhage Ondansetron HCl (Ondansetron 4 Mg/2 Ml Sdv) 4 mg IVPUSH Q4H PRN PRN Reason: Nausea/Vomiting Promethazine HCl (Promethazine 25 Mg Tab) 25 mg PO Q4H PRN PRN Reason: Nausea/Vomiting Last Admin: 06/30/20 23:04 Dose: 25 mg Documented by: Sodium Chloride (Sodium Chloride 0.9% 10 Ml Syringe) 10 ml FLUSH ASDIRECTED PRN PRN Reason: Keep Vein Open Sodium Chloride (Sodium Chloride 0.9% 2.5 Ml Syringe) 2.5 ml FLUSH ASDIRECTED PRN PRN Reason: Keep Vein Open Sodium Chloride (Sodium Chloride 0.9% 10 Ml Sdv) 10 ml IV ASDIRECTED PRN PRN Reason: IV Use Sterile Water (Water For Irrigation,Sterile 1,000 Ml Container) 1,000 ml IRR ASDIRECTED PRN PRN Reason: delivery Terbutaline Sulfate (Terbutaline 1 Mg/Ml Sdv) 0.25 mg SUBCUT ASDIRECTED PRN PRN Reason: Tacysystole Witch Praveena (Witch Praveena Medicated Pads 40/Jar) 1 pad TOP ASDIRECTED PRN PRN Reason: comfort care Last Admin: 07/01/20 12:13 Dose: 1 applic Documented by: Discontinued Medications Fentanyl (Fentanyl 100 Mcg/2 Ml Sdv) Confirm Administered Dose 100 mcg .ROUTE .STK-MED ONE Stop: 07/01/20 01:44 Last Admin: 07/01/20 19:12 Dose: Not Given Documented by: Fentanyl (Fentanyl 100 Mcg/2 Ml Sdv) Confirm Administered Dose 100 mcg .ROUTE .STK-MED ONE Stop: 07/01/20 04:27 Last Admin: 07/01/20 19:12 Dose: Not Given Documented by: Fentanyl (Fentanyl 100 Mcg/2 Ml Sdv) Confirm Administered Dose 100 mcg .ROUTE .STK-MED ONE Stop: 07/01/20 06:42 Last Admin: 07/01/20 19:12 Dose: Not Given Documented by: Fentanyl (Fentanyl 100 Mcg/2 Ml Sdv) Confirm Administered Dose 100 mcg .ROUTE .STK-MED ONE Stop: 07/01/20 08:19 Last Admin: 07/01/20 19:14 Dose: Not Given Documented by: Fentanyl (Fentanyl 100 Mcg/2 Ml Sdv) Confirm Administered Dose 100 mcg .ROUTE .STK-MED ONE Stop: 07/01/20 08:19 Last Admin: 07/01/20 19:14 Dose: Not Given Documented by: Ropivacaine (Naropin 0.2%) Confirm Administered Dose 100 mls @ as directed .ROUTE .STK-MED ONE Stop: 07/01/20 01:44 Last Admin: 07/01/20 19:11 Dose: Not Given Documented by: Ropivacaine (Naropin 0.2%) Confirm Administered Dose 100 mls @ as directed .ROUT E .STK-MED ONE Stop: 07/01/20 08:19 Last Admin: 07/01/20 19:12 Dose: Not Given Documented by: Lidocaine/Epinephrine (Lidocaine 2% With Epinephrine 1:200,000 20 Ml Sdv) Confirm Administered Dose 20 ml .ROUTE .STK-MED ONE Stop: 07/01/20 04:27 Last Admin: 07/01/20 19:12 Dose: Not Given Documented by: Misoprostol (Misoprostol 25 Mcg (1/4 Of 100 Mcg) Tab) 25 mcg VAG ONETIME PRN PRN Reason: Cervical Ripening Misoprostol (Misoprostol 25 Mcg (1/4 Of 100 Mcg) Tab) 25 mcg VAG Q4H PRN PRN Reason: Cervical Ripening Misoprostol (Misoprostol 25 Mcg (1/4 Of 100 Mcg) Tab) 25 mcg VAG ONETIME PRN PRN Reason: Cervical Ripening Misoprostol (Misoprostol 25 Mcg (1/4 Of 100 Mcg) Tab) 25 mcg VAG Q4H PRN PRN Reason: Cervical Ripening Nalbuphine HCl (Nalbuphine 10 Mg/1 Ml Vial) 10 mg IVPUSH Q1H PRN PRN Reason: Pain (severe 7-10) Last Admin: 07/01/20 00:31 Dose: 10 mg Documented by: Valacyclovir HCl (Valacyclovir 500 Mg Tab) 500 mg PO ONETIME ONE Stop: 06/30/20 21:28 Last Admin: 06/30/20 22:12 Dose: 500 mg Documented by: - Exam General: Reports: Alert, Oriented, Cooperative, No Acute Distress Lungs: Reports: Normal Respiratory Effort Cardiovascular: Reports: Regular Rate, Regular Rhythm GI/Abdominal Exam: Soft, Non-Tender (Female) Exam: Deferred Rectal (Female) Exam: Deferred Extremities: Normal Inspection, Normal Range of Motion, Non-Tender, Normal Capillary Refill Skin: Reports: Warm, Dry, Intact Neurological: Reports: No New Focal Deficit, Normal Gait, Normal Speech, Normal Tone, Strength Equal Bilateral, Sensation Intact Psy/Mental Status: Reports: Alert, Normal Affect, Normal Mood
== END 2020-07-03 14:37 | disposition home or self-care (01) | DRG 560 ==
LOC: MW.OBCHECK 10:14 → MW.OB 10:17 → MW.OBCHECK 11:52 → OBSVTOIN 07-01 10:51 → MW.OB 07-01 12:26
PROVIDERS: ADMIT Obstetrics & Gynecology Obstetrics; ATTEND Obstetrics & Gynecology Obstetrics
PROC: 10E0XZZ Delivery of Products of Conception, External Approach (ICD-10-PCS; principal; 2020-07-01)
PROC: 3E0R3BZ Introduction of Anesthetic Agent into Spinal Canal, Percutaneous Approach (ICD-10-PCS; 2020-07-01)
PROC: 00HU33Z Insertion of Infusion Device into Spinal Canal, Percutaneous Approach (ICD-10-PCS; 2020-07-01)
PROC: 0KQM0ZZ Repair Perineum Muscle, Open Approach (ICD-10-PCS; 2020-07-01)
DX: O69.81X0 Labor and delivery complicated by cord around neck, without compression, not applicable or unspecified (principal); O98.32 Other infections with a predominantly sexual mode of transmission complicating childbirth; Z3A.38 38 weeks gestation of pregnancy; Z37.0 Single live birth; O70.1 Second degree perineal laceration during delivery
CPT/HCPCS: 01967; 36415; 51702; 59025; 59409; 84112; 85014; 85018; 85027; 86592; 86850; 86900; 86901; A9270-GY; J2001; J2300; J2590; J2795; J3010; J7120; U0002

== ENCOUNTER 2020-09-14 14:16 | Emergency (ER) | payer MEDICAID ==
--- NOTE | 2020-09-14 14:25 | EDM.PDOC ---
ED HPI GENERAL MEDICAL PROBLEM - General Chief Complaint: Chest Pain Stated Complaint: CHEST PAIN Time Seen by Provider: 09/14/20 14:22 Source of Information: Reports: Patient History Limitations: Reports: No Limitations - History of Present Illness INITIAL COMMENTS - FREE TEXT/NARRATIVE: Patient is a 29-year-old female who presents today for chest pressure. Patient that she has had a Depakote shot about 15 minutes ago and afterwards she felt a sudden garcia of pressure on her chest was of an elephant sitting there. She also mention diffuse body pain but did denies any radiation of the pressure to her arms or neck. States that the makes the pain better or worse does not take any medication for this. She also reports some shortness of breath. She denies any nausea vomiting fever chills or leg swelling recent travels chest Pain Score (Numeric/FACES): 5 - Related Data Allergies Allergy/AdvReac Type Severity Reaction Status Date / Time Penicillins Allergy Unknown Rash Verified 09/14/20 14:30 tramadol Allergy Nausea and Verified 09/14/20 14:30 Vomiting Home Meds: Home Meds Pnv No.95/Ferrous Fum/Folic AC [ Tablet] 1 tab PO DAILY 06/30/20 [History] valACYclovir HCl [Valtrex] 500 tab PO BID 06/30/20 [History] Ibuprofen [Motrin] 800 mg PO Q6H PRN #90 tablet 07/03/20 [Rx] Escitalopram [Lexapro] 09/14/20 [History] Past Medical History - Past Health History Medical/Surgical History: Denies Medical/Surgical History HEENT History: Reports: None Other HEENT History: [place] teeth removed, Tonsillectomy [employer]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 Cyst on wirst removed - Infectious Disease History Infectious Disease History: Reports: None - Past Surgical History HEENT Surgical History: Reports: Tonsillectomy Social & Family History - Family History Family Medical History: No Pertinent Family History - Caffeine Use Caffeine Use: Reports: None ED ROS GENERAL - Review of Systems Review Of Systems: See Below Constitutional: Reports: No Symptoms HEENT: Reports: No Symptoms Respiratory: Reports: No Symptoms Cardiovascular: Reports: Chest Pain Endocrine: Reports: No Symptoms GI/Abdominal: Reports: No Symptoms : Reports: No Symptoms Musculoskeletal: Reports: No Symptoms Skin: Reports: No Symptoms Neurological: Reports: No Symptoms Psychiatric: Reports: No Symptoms Hematologic/Lymphatic: Reports: No Symptoms Immunologic: Reports: No Symptoms ED EXAM, GENERAL - Physical Exam Exam: See Below Exam Limited By: No Limitations General Appearance: Alert, WD/WN, No Apparent Distress Eye Exam: Bilateral Eye: EOMI, PERRL Head: Atraumatic Neck: Normal Inspection, Supple, Non-Tender Respiratory/Chest: No Respiratory Distress, Lungs Clear, Normal Breath Sounds Cardiovascular: Normal Peripheral Pulses, Regular Rate, Rhythm GI/Abdominal: Normal Bowel Sounds, Soft, Non-Tender Extremities: Normal Inspection, Normal Range of Motion Neurological: Alert, Oriented, CN II-XII Intact, Normal Cognition, Normal Gait #1 Interpretation EKG Date: 09/14/20 Time: 14:16 Rhythm: NSR Rate (Beats/Min): 79 ST-T: Normal Course - Vital Signs Last Recorded V/S: Last Vital Signs Temp 98 F 09/14/20 17:10 Pulse 98 09/14/20 17:10 Resp 18 09/14/20 17:10 BP 114/59 L 09/14/20 17:10 Pulse Ox 97 09/14/20 17:10 - Orders/Labs/Meds Labs: Laboratory Tests 09/14/20 09/14/20 09/14/20 Range/Units 14:24 14:24 14:24 WBC 2.84 L (4.0-11.0) K/uL RBC 4.79 (4.30-5.90) M/uL Hgb 15.3 (12.0-16.0) g/dL Hct 44.0 (36.0-46.0) % MCV 91.9 (80.0-98.0) fL MCH 31.9 (27.0-32.0) pg MCHC 34.8 (31.0-37.0) g/dL RDW Std Deviation 40.7 (28.0-62.0) fl RDW Coeff of Eliane 12 (11.0-15.0) % Plt Count 311 (150-400) K/uL MPV 9.50 (7.40-12.00) fL Add Manual Diff YES Neutrophils % (Manual) 34 L (48.0-80.0) % Band Neutrophils % 4 % Lymphocytes % (Manual) 57 H (16.0-40.0) % Monocytes % (Manual) 1 (0.0-15.0) % Basophils % (Manual) 1 (0.0-1.5) % Metamyelocytes % 3 % Absolute Seg Neuts 1.0 L (1.4-5.7) Band Neutrophils # 0.1 Lymphocytes # (Manual) 1.6 (0.6-2.4) Monocytes # (Manual) 0.0 (0.0-0.8) Basophils # (Manual) 0.0 (0.0-0.1) Absolute Metamyelocyte 0.1 D-Dimer, Quantitative 1.85 H (0.0-0.50) mg/L FEU Sodium 141 (136-145) mmol/L Potassium 3.7 (3.5-5.1) mmol/L Chloride 104 (98-107) mmol/L Carbon Dioxide 27.3 (21.0-32.0) mmol/L BUN 14 (7.0-18.0) mg/dL Creatinine 1.1 H (0.6-1.0) mg/dL Est Cr Clr Drug Dosing 54.20 mL/min Estimated GFR (MDRD) 58.7 ml/min Glucose 97 (74-106) mg/dL Calcium 8.6 (8.5-10.1) mg/dL Total Bilirubin 0.3 (0.2-1.0) mg/dL AST 26 (15-37) IU/L ALT 64 H (14-63) IU/L Alkaline Phosphatase 127 H (46-116) U/L Creatine Kinase 75 (26-308) U/L Troponin I < 0.050 (0.000-0.056) ng/mL Total Protein 7.3 (6.4-8.2) g/dL Albumin 3.5 (3.4-5.0) g/dL Globulin 3.8 (2.6-4.0) g/dL Albumin/Globulin Ratio 0.9 (0.9-1.6) HCG, Qual (NEG) Urine Color Urine Appearance Urine pH (5.0-8.0) Ur Specific [place] (1.001-1.035) Urine Protein (NEGATIVE) mg/dL Urine Glucose (UA) (NEGATIVE) mg/dL Urine Ketones (NEGATIVE) mg/dL Urine Occult Blood (NEGATIVE) Urine Nitrite (NEGATIVE) Urine Bilirubin (NEGATIVE) Urine Urobilinogen (<2.0) EU/dL Ur Leukocyte Esterase (NEGATIVE) 09/14/20 09/14/20 Range/Units 14:24 16:02 WBC (4.0-11.0) K/uL RBC (4.30-5.90) M/uL Hgb (12.0-16.0) g/dL Hct (36.0-46.0) % MCV (80.0-98.0) fL MCH (27.0-32.0) pg MCHC (31.0-37.0) g/dL RDW Std Deviation (28.0-62.0) fl RDW Coeff of Eliane (11.0-15.0) % Plt Count (150-400) K/uL MPV (7.40-12.00) fL Add Manual Diff Neutrophils % (Manual) (48.0-80.0) % Band Neutrophils % % Lymphocytes % (Manual) (16.0-40.0) % Monocytes % (Manual) (0.0-15.0) % Basophils % (Manual) (0.0-1.5) % Metamyelocytes % % Absolute Seg Neuts (1.4-5.7) Band Neutrophils # Lymphocytes # (Manual) (0.6-2.4) Monocytes # (Manual) (0.0-0.8) Basophils # (Manual) (0.0-0.1) Absolute Metamyelocyte D-Dimer, Quantitative (0.0-0.50) mg/L FEU Sodium (136-145) mmol/L Potassium (3.5-5.1) mmol/L Chloride (98-107) mmol/L Carbon Dioxide (21.0-32.0) mmol/L BUN (7.0-18.0) mg/dL Creatinine (0.6-1.0) mg/dL Est Cr Clr Drug Dosing mL/min Estimated GFR (MDRD) ml/min Glucose (74-106) mg/dL Calcium (8.5-10.1) mg/dL Total Bilirubin (0.2-1.0) mg/dL AST (15-37) IU/L ALT (14-63) IU/L Alkaline Phosphatase (46-116) U/L Creatine Kinase (26-308) U/L Troponin I (0.000-0.056) ng/mL Total Protein (6.4-8.2) g/dL Albumin (3.4-5.0) g/dL Globulin (2.6-4.0) g/dL Albumin/Globulin Ratio (0.9-1.6) HCG, Qual NEGATIVE (NEG) Urine Color YELLOW Urine Appearance CLEAR Urine pH 6.0 (5.0-8.0) Ur Specific [place] 1.020 (1.001-1.035) Urine Protein NEGATIVE (NEGATIVE) mg/dL Urine Glucose (UA) NEGATIVE (NEGATIVE) mg/dL Urine Ketones NEGATIVE (NEGATIVE) mg/dL Urine Occult Blood NEGATIVE (NEGATIVE) Urine Nitrite NEGATIVE (NEGATIVE) Urine Bilirubin NEGATIVE (NEGATIVE) Urine Urobilinogen 0.2 (<2.0) EU/dL Ur Leukocyte Esterase NEGATIVE (NEGATIVE) - Re-Assessments/Exams Free Text/Narrative Re-Assessment/Exam: 09/14/20 17:[address] negative patient tropes negative EKG reviewed. Patient feeling bett er but at baseline will be discharged home. Departure - Departure Time of Disposition: 17:36 Disposition: Home, Self-Care 01 Condition: Good Clinical Impression: Chest pain Instructions: Nonspecific Chest Pain, Adult, [id number] Forms: ED Department Discharge Additional Instructions: The following information is given to patients seen in the emergency department who are being discharged to home. This information is to outline your options for follow-up care. We provide all patients seen in our emergency department with a follow-up referral. The need for follow-up, as well as the timing and circumstances, are variable depending upon the specifics of your emergency department visit. If you don't have a primary care physician on staff, we will provide you with a referral. We always advise you to contact your personal physician following an emergency department visit to inform them of the circumstance of the visit and for follow-up with them and/or the need for any referrals to a consulting specialist. The emergency department will also refer you to a specialist when appropriate. This referral assures that you have the opportunity for follow-up care with a sp ecialist. All of these measure are taken in an effort to provide you with optimal care, which includes your follow-up. Under all circumstances we always encourage you to contact your private physicia n who remains a resource for coordinating your care. When calling for follow-up care, please make the office aware that this follow-up is from your recent emergency room visit. If for any reason you are refused follow-up, please contact the [facility] Emergency Department at and asked to speak to the emergency department charge nurse. Please follow up with your primary care physician. If you do not have a primary care physician, see below: [facility] [address] [place] [id number] [facility] [address] [place] [address] You are seen today for chest pain we did a CT scan of the chest to rule out any pulmonary embolus in your lungs we also did EKGs for your heart as well as labs everything within normal limits unclear cause or causes pain or sensation recommended to keep above you to follow-up with primary care physician if you have any concerning signs or symptoms please return to the ED. Sepsis Event Note (ED) - Focused Exam Vital Signs: Vital Signs Temp Pulse Resp BP Pulse Ox 09/14/20 17:10 98 F 98 18 114/59 L 97 09/14/20 16:10 98.1 F 84 18 104/72 98 09/14/20 14:26 97.4 F 102 H 18 157/114 H 100 - Assessment/Plan Plan: Is a 29-year-old female presents today for chest pressure feeling. Patient is also 2 months . Will obtain labs EKG D-dimer reassess.
[2020-09-14 14:57] LABS: BLOOD UREA NITROGEN,BUN 14 mg/dL (7.0-18.0); CARBON DIOXIDE,CO2 27.3 mmol/L (21.0-32.0); CHLORIDE,CL 104 mmol/L (98-107); GLUCOSE RANDOM 97 mg/dL (74-106); POTASSIUM,K 3.7 mmol/L (3.5-5.1); SODIUM,NA 141 mmol/L (136-145)
--- NOTE | 2020-09-14 15:17 | CR ---
INDICATION: chest pressure TECHNIQUE: Chest 1 view. COMPARISON: None. FINDINGS: Cardiovascular and mediastinum: Heart size and vasculature are normal in caliber and appearance. Mediastinum is within normal limits. Lungs and pleural space: Lungs are clear. No sign of infiltrate or mass. No sign of pleural effusion. No pneumothorax. Bones and soft tissues: No significant findings. IMPRESSION: Unremarkable chest. Dictated by: Juma Acuna MD @ 09/14/2020 15:15:57 (Electronically Signed)
--- NOTE | 2020-09-14 17:27 | CT ---
INDICATION: Chest pressure, palpitations, elevated D-dimer TECHNIQUE: CT chest pulmonary PE protocol acquired with 100 cc Isovue 370 IV contrast. COMPARISON: Chest radiograph from same date FINDINGS: Cardiovascular structures: Normal vascular enhancement of the pulmonary arteries, no sign of pulmonary embolism. Heart size is normal. No sign of aneurysm in the thoracic aorta. Mediastinum and heber: No mass or adenopathy. Lungs: Clear. Pleura and pericardium: No effusions. Chest wall and axilla: No mass or adenopathy. Upper abdomen: Unremarkable. Bones: No significant findings. IMPRESSION: Unremarkable chest CT. Specifically, no pulmonary embolism or pneumonia. Please note that all CT scans at this facility use dose modulation, iterative reconstruction, and/or weight-based dosing when appropriate to reduce radiation dose to as low as reasonably achievable. Dictated by Ariadna Trammell MD @ 09/14/2020 5:25:[address] Ariadna Trammell @ Sep 14 2020 5:25PM
== END 2020-09-14 17:50 | disposition home or self-care (01) ==
LOC: MW.ED 14:16
DX: R07.89 Other chest pain (principal); Z88.5 Allergy status to narcotic agent; Z88.0 Allergy status to penicillin
CPT/HCPCS: 36415; 71045; 71045-26; 71275; 71275-26; 80053; 81003; 82550; 84484; 84703; 85025; 85379; 93005; 93010; 99283; 99285-25

== ENCOUNTER 2023-04-16 13:39 | Inpatient (IN) | payer MEDICAID ==
[2023-04-16] MEDS ORDERED: Lidocaine 1% 50 ML MDV INJECT PRN (14:54)
[2023-04-16] MEDS ORDERED: Nalbuphine 10 MG/0.5 ML Syringe IVPUSH PRN (14:54)
[2023-04-16] MEDS ORDERED: Tranexamic Acid IN NACL,ISO-OS 1,000 MG in Premix Bag 1 BAG IV PRN (14:54)
[2023-04-16] MEDS ORDERED: Sodium Chloride 0.9% 10 ML Syringe FLUSH PRN (14:54)
[2023-04-16] MEDS ORDERED: Ondansetron 4 MG/2 ML SDV IVPUSH PRN (14:54)
[2023-04-16] MEDS ORDERED: Sodium Chloride 0.9% 2.5 ML Syringe FLUSH PRN (14:54)
[2023-04-16] MEDS ORDERED: Carboprost Tromethamine 250 MCG/1 mL Vial IM PRN (14:54)
[2023-04-16] MEDS ORDERED: Water For Irrigation,Sterile 1,000 ML Container IRR PRN (14:54)
[2023-04-16] MEDS ORDERED: Terbutaline 1 MG/ML SDV SUBCUT PRN (14:54)
[2023-04-16] MEDS ORDERED: Sodium Chloride 0.9% 20 ML SDV IV PRN (14:54)
[2023-04-16] MEDS ORDERED: Methylergonovine 0.2 MG/1 ML Amp IM PRN (14:54)
[2023-04-16] MEDS ORDERED: Misoprostol 200 MCG Tab PO PRN (14:54)
[2023-04-16] MEDS ORDERED: Oxytocin/0.9 % Sodium Chloride 30 UNIT/500 ML BAG IV SCH (15:00)
[2023-04-16] MEDS ORDERED: ePHEDrine 50 MG/ML SDV IVPUSH PRN ×2 (15:12)
[2023-04-16] MEDS: Lactated Ringers 1,000 ML IV SCH (15:25)
[2023-04-16 15:31] LABS: HEMATOCRIT 35.9 % (37.0-47.0); HEMOGLOBIN 12.8 g/dL (12.0-16.0); IMMATURE GRAN ABSOLUTE AUTO 0.07 K/uL (0.00-0.05); IMMATURE GRAN PERCENT AUTO 0.5 % (0.0-0.4); MEAN CORPUSCULAR HGB CONC 35.7 g/dL (32.0-36.0); MEAN CORPUSCULAR VOLUME 86.9 fL (83.0-99.0); MEAN PLATELET VOLUME 10.8 fL (9.4-12.3); PLATELET COUNT,PLT 295 K/uL (150-400); RED BLOOD CELL COUNT 4.13 M/uL (4.10-5.30); WHITE BLOOD CELL COUNT,WBC 13.08 K/uL (3.9-11.3)
[2023-04-16] MEDS: Oxytocin/0.9 % Sodium Chloride 30 UNIT/500 ML BAG IV SCH (16:23)
[2023-04-16] MEDS ORDERED: dexmedeTOMIDine HCl 200 MCG/2 ML SDV ONE (19:51)
[2023-04-16] MEDS ORDERED: Bupivacaine 0.25% 10 ML SDV ONE (19:51)
[2023-04-16] MEDS: Ropivacaine HCl/PF 400 MG in Premix Bag 1 BAG EPIDUR SCH (19:56)
[2023-04-16] MEDS: Phenylephrine HCl 0.5 MG/5 ML AMP IVPUSH PRN (22:14)
[2023-04-17] MEDS ORDERED: Misoprostol 200 MCG Tab ONE (06:15)
[2023-04-17] MEDS ORDERED: Morphine 2 MG/ML SYRINGE IVPUSH PRN (06:30)
[2023-04-17] MEDS ORDERED: diphenhydrAMINE 50 MG/ML SDV IVPUSH PRN ×2 (06:30→07:58)
[2023-04-17] MEDS ORDERED: Metoclopramide 10 MG/2 ML SDV IVPUSH PRN (06:30)
[2023-04-17] MEDS ORDERED: Naloxone 0.4 MG/ML SDV IVPUSH PRN (06:30)
[2023-04-17] MEDS ORDERED: Ondansetron 4 MG/2 ML SDV IVPUSH PRN ×2 (06:30)
[2023-04-17] MEDS ORDERED: ePHEDrine 50 MG/ML SDV IVPUSH PRN (06:30)
[2023-04-17] MEDS ORDERED: fentaNYL 100 MCG/2 ML SDV IVPUSH PRN (06:30)
[2023-04-17] MEDS ORDERED: Acetaminophen/oxyCODONE 325-5 MG Tab PO PRN (06:30)
[2023-04-17] MEDS ORDERED: HYDROmorphone 1 MG/ML Syringe IVPUSH PRN (06:30)
[2023-04-17] MEDS ORDERED: Albuterol 0.083% 2.5 MG/3 ML Neb Soln NEB PRN (06:30)
[2023-04-17] MEDS ORDERED: fentaNYL 50 MCG/ML SDV IVPUSH PRN (06:30)
[2023-04-17] MEDS ORDERED: droPERidol 5 MG/2 ML SDV IVPUSH PRN (06:30)
[2023-04-17] MEDS ORDERED: Bupivacaine 0.5% 10 ML SDV ONE (07:29)
[2023-04-17] MEDS ORDERED: Tranexamic Acid 1,000 MG/10 ML Vial ONE (07:29)
[2023-04-17] MEDS ORDERED: droPERidol 5 MG/2 ML SDV ONE (07:29)
[2023-04-17] MEDS ORDERED: Phenylephrine HCl 0.5 MG/5 ML AMP ONE ×4 (07:29)
[2023-04-17] MEDS ORDERED: ceFAZolin 1 GM Vial ONE (07:29)
[2023-04-17] MEDS ORDERED: Ondansetron 4 MG/2 ML SDV ONE ×2 (07:29)
[2023-04-17] MEDS ORDERED: Ropivacaine 0.5% 5 MG/ML 30 ML SDV ONE (07:29)
[2023-04-17] MEDS ORDERED: dexmedeTOMIDine HCl 200 MCG/2 ML SDV ONE (07:29)
[2023-04-17] MEDS ORDERED: Water For Injection, Sterile 20 ML ONE (07:29)
[2023-04-17] MEDS ORDERED: Dexamethasone 4 MG/ML 5 ML MDV ONE (07:29)
[2023-04-17] MEDS ORDERED: Oxytocin 10 Units/1 ML SDV ONE (07:29)
[2023-04-17] MEDS ORDERED: Bisacodyl 10 MG Supp RECTAL PRN (07:58)
[2023-04-17] MEDS ORDERED: Oxytocin 10 Units/1 ML SDV IM PRN (07:58)
[2023-04-17] MEDS ORDERED: Misoprostol 200 MCG Tab RECTAL PRN (07:58)
[2023-04-17] MEDS ORDERED: Lanolin 100% Cream 7 GM Tube TOP PRN (07:58)
[2023-04-17] MEDS ORDERED: Acetaminophen/HYDROcodone 325-5 MG Tab PO PRN (07:58)
[2023-04-17] MEDS ORDERED: Methylergonovine 0.2 MG/1 ML Amp IM PRN (07:58)
[2023-04-17] MEDS ORDERED: Oxytocin/0.9 % Sodium Chloride 30 UNIT/500 ML BAG IV SCH (08:00)
[2023-04-17] MEDS: Acetaminophen 1,000 MG in Premix Bag 1 BAG IV SCH (08:05)
[2023-04-17] MEDS: Ampicillin/Sulbactam Na 3 GM in Sodium Chloride 0.9% 100 ML IV SCH (08:52)
[2023-04-17] MEDS: Docusate Sodium 100 MG Cap PO SCH (08:54)
[2023-04-17] MEDS: Ketorolac 30 MG/ML SDV IVPUSH SCH (09:28)
[2023-04-17] MEDS: Lactated Ringers 1,000 ML IV SCH (09:53)
[2023-04-17] MEDS ORDERED: Morphine PF 10 MG/10 ML SDV ONE (11:09)
[2023-04-17] MEDS: Ondansetron 4 MG/2 ML SDV IVPUSH PRN (12:51)
[2023-04-18] MEDS ORDERED: Acetaminophen 1,000 MG in Premix Bag 1 BAG IV PRN (02:00)
[2023-04-18] MEDS ORDERED: Acetaminophen 500 MG Tab PO PRN (02:00)
[2023-04-18 06:42] LABS: HEMATOCRIT 30.3 % (37.0-47.0); HEMOGLOBIN 10.3 g/dL (12.0-16.0)
[2023-04-18] MEDS: Ibuprofen 800 MG Tab PO PRN (10:29)
[2023-04-18] MEDS: Acetaminophen/oxyCODONE 325-5 MG Tab PO PRN (16:45)
[2023-04-19] MEDS: Acetaminophen/oxyCODONE 325-5 MG Tab PO PRN (01:02)
== END 2023-04-19 14:13 | disposition home or self-care (01) | DRG 788 ==
LOC: MW.OBCHECK 13:39 → MW.OB 13:40 → MW.OBCHECK 14:55 → OBSVTOIN 04-17 06:14 → MW.OB 04-17 12:48
PROVIDERS: ADMIT Obstetrics & Gynecology; ATTEND Obstetrics & Gynecology
PROC: 10907ZC Drainage of Amniotic Fluid, Therapeutic from Products of Conception, Via Natural or Artificial Opening (ICD-10-PCS; 2023-04-17)
PROC: 3E0R3BZ Introduction of Anesthetic Agent into Spinal Canal, Percutaneous Approach (ICD-10-PCS; 2023-04-17)
PROC: 00HU33Z Insertion of Infusion Device into Spinal Canal, Percutaneous Approach (ICD-10-PCS; 2023-04-17)
PROC: 10D00Z1 Extraction of Products of Conception, Low, Open Approach (ICD-10-PCS; principal; 2023-04-17 06:09)
DX: O42.02 Full-term premature rupture of membranes, onset of labor within 24 hours of rupture (principal); O76 Abnormality in fetal heart rate and rhythm complicating labor and delivery; Z37.0 Single live birth; Z3A.38 38 weeks gestation of pregnancy; Z88.0 Allergy status to penicillin; Z88.8 Allergy status to other drugs, medicaments and biological substances; Z90.89 Acquired absence of other organs; Z86.16 Personal history of COVID-19
CPT/HCPCS: 01967; 01968; 36415; 51702; 59514; 64488; 84112; 85014; 85018; 85027; 86592; 86850; 86900; 86901; A9270-GY; J0131; J0295; J0665; J0690; J1100; J1790; J1885; J2274; J2371; J2405; J2590; J2795; J3490; J7120

== ENCOUNTER 2024-09-24 12:22 | Emergency (ER) | payer SELFPAY ==
[2024-09-24 12:42] LABS: BASOPHILS ABSOLUTE AUTO 0.07 K/uL (0.00-0.20); BASOPHILS PERCENT AUTO 0.6 % (0.0-1.0); EOSINOPHILS ABSOLUTE AUTO 0.54 K/uL (0.00-0.45); EOSINOPHILS PERCENT AUTO 4.3 % (0.0-6.0); IMMATURE GRAN ABSOLUTE AUTO 0.03 K/uL (0.00-0.05); IMMATURE GRAN PERCENT AUTO 0.2 % (0.0-0.4); LYMPHOCYTES ABSOLUTE AUTO 2.53 K/uL (1.00-4.80); LYMPHOCYTES PERCENT AUTO 20.3 % (24.0-44.0); MEAN PLATELET VOLUME 9.5 fL (9.4-12.3); MONOCYTES ABSOLUTE AUTO 0.72 K/uL (0.00-0.80); MONOCYTES PERCENT AUTO 5.8 % (0.0-8.0); NEUTROPHILS ABSOLUTE AUTO 8.55 K/uL (1.80-7.70); NEUTROPHILS PERCENT AUTO 68.8 % (41.0-71.0); NRBC ABSOLUTE 0.00 K/uL (0.00-0.02); NRBC PERCENT 0.0 /100WBC (0.0-0.2); PLATELET COUNT,PLT 329 K/uL (150-400); RED BLOOD CELL COUNT 4.48 M/uL (4.10-5.30); WHITE BLOOD CELL COUNT,WBC 12.44 K/uL (3.9-11.3)
[2024-09-24 13:11] LABS: A/G RATIO 1.0 (0.9-1.6); ALANINE AMINOTRANSFERASE,ALT 33.0 IU/L (14-63); ASPARTATE AMNIOTRANSFERASE,AST 19.0 IU/L (15-37); BILIRUBIN TOTAL 0.4 mg/dL (0.2-1.0); BLOOD UREA NITROGEN,BUN 11.0 mg/dL (7.0-18.0); CARBON DIOXIDE,CO2 26.5 mmol/L (21.0-32.0); CHLORIDE,CL 102.0 mmol/L (98-107); CREATININE 1.2 mg/dL (0.6-1.0); EST CRCL DRUG DOSING (CG) 47.45 mL/min; GLUCOSE RANDOM 109.0 mg/dL (74-106); HCG QUANTITATIVE 966.0 mIU/mL; POTASSIUM,K 3.7 mmol/L (3.5-5.1); PROTEIN TOTAL,TP 7.3 g/dL (6.4-8.2); SODIUM,NA 138.0 mmol/L (136-145)
[2024-09-24 13:16] LABS: ESTIMATED GFR 61.0 mL/min (>60)
[2024-09-24] MEDS: Methotrexate PF 50 MG/2 ML SDV IM ONE (14:13)
== END 2024-09-24 14:42 | disposition home or self-care (01) ==
LOC: MW.ED 12:22
DX: O00.90 Unspecified ectopic pregnancy without intrauterine pregnancy (principal); Z3A.00 Weeks of gestation of pregnancy not specified; Z88.0 Allergy status to penicillin; Z88.5 Allergy status to narcotic agent
CPT/HCPCS: 36415; 80053; 84702; 85025; 86900; 86901; 96372; 99283; 99284